=== PATIENT | female | born 1980 | race Caucasian/White ===

== ENCOUNTER → 2016-10-16 | Outpatient (REF) | payer OTHER ==
[2016-10-16 19:16] LABS: BASO % 0.3 % (0.0-1.0); EOS # 0.2 K/mm3 (0.0-0.50); EOS % 3.5 % (0.0-3.0); LARGE UNSTAINED CELL # 0.1 K/mm3 (0.0-0.4); LARGE UNSTAINED CELL % 2.4 % (0.0-4.0); LYMPH # 1.9 K/mm3 (1.5-4.5); LYMPH % 33.1 % (24.0-44.0); MEAN CORPUSCULAR HEMOGLOBIN 26.9 pg (27.0-33.0); MEAN CORPUSCULAR HGB CONC 32.5 g/dl (32.0-36.5); MEAN CORPUSCULAR VOLUME 82.8 fl (80.0-96.0); MONO # 0.2 K/mm3 (0.0-0.8); MONO % 4.1 % (0.0-5.0); NEUTROPHILS # 3.2 K/mm3 (1.8-7.7); NEUTROPHILS % 56.7 % (36.0-66.0); PLATELET COUNT, AUTOMATED 219 k/mm3 (150-450); RED CELL DISTRIBUTION WIDTH 15.6 % (11.5-14.5); WHITE BLOOD COUNT 5.7 K/mm3 (4.0-10.0)
[2016-10-16 19:27] LABS: ALBUMIN 4.1 GM/DL (3.2-5.2); ALBUMIN/GLOBULIN RATIO 1.32 (1.00-1.93); ALKALINE PHOSPHATASE 61 U/L (45-117); ALT/SGPT 59 U/L (12-78); ANION GAP 10 MEQ/L (8-16); AST/SGOT 24 U/L (15-37); BILIRUBIN,TOTAL 0.8 MG/DL (0.2-1.0); BLOOD UREA NITROGEN 13 MG/DL (7-18); CALCIUM LEVEL 9.1 MG/DL (8.5-10.1); CARBON DIOXIDE LEVEL 28 MEQ/L (21-32); CHLORIDE LEVEL 105 MEQ/L (98-107); CREATININE FOR GFR 0.61 MG/DL (0.55-1.02); FERRITIN 31 NG/ML (8-252); GLOMERULAR FILTRATION RATE > 60.0 (>60); GLUCOSE, FASTING 108 MG/DL (70-105); PERCENT SATURATION 9.8 % (13.2-37.4); PHOSPHORUS LEVEL 3.3 MG/DL (2.5-4.9); POTASSIUM SERUM 3.9 MEQ/L (3.5-5.1); SODIUM LEVEL 143 MEQ/L (136-145); TOTAL IRON BINDING CAPACITY 338 UG/DL (250-450); TOTAL PROTEIN 7.2 GM/DL (6.4-8.2)
[2016-10-16 19:31] LABS: VITAMIN B12 LEVEL 940 PG/ML (247-911)
[2016-10-20 11:04] LABS: PRETREATED FOLATE FOR RBCFOL 9.9 NG/ML
== END ==
LOC: M LABDRWAD 15:08
PROVIDERS: ATTEND Surgery
DX: K91.2 Postsurgical malabsorption, not elsewhere classified (principal); E55.9 Vitamin D deficiency, unspecified; Z98.84 Bariatric surgery status

== ENCOUNTER → 2016-11-25 | Outpatient (CLI) | payer OTHER ==
--- NOTE | 2016-11-25 10:55 | REP ---
Clinical: Sprain. Technique: AP, lateral, bilateral oblique views of the right wrist. Findings: The carpal bones are normal and there is no evidence for acute fracture or dislocation. There is chronic negative ulnar variance. Surrounding soft tissues are unremarkable. Impression: No acute fracture dislocation. Chronic negative ulnar variance. Signed by Markie Moore MD 11/25/2016 10:47 A
== END ==
LOC: M WUC 10:28
PROVIDERS: ATTEND Physician Assistant
DX: S63.511A Sprain of carpal joint of right wrist, initial encounter (principal); X58.XXXA Exposure to other specified factors, initial encounter; Y93.9 Activity, unspecified; Y92.9 Unspecified place or not applicable; Y99.8 Other external cause status

== ENCOUNTER → 2017-04-08 | Outpatient (REF) | payer OTHER ==
[2017-04-08 20:10] LABS: BASO % 0.5 % (0.0-1.0); EOS # 0.2 K/mm3 (0.0-0.50); EOS % 2.5 % (0.0-3.0); LARGE UNSTAINED CELL # 0.1 K/mm3 (0.0-0.4); LARGE UNSTAINED CELL % 1.4 % (0.0-4.0); LYMPH % 35.1 % (24.0-44.0); MEAN CORPUSCULAR HGB CONC 31.9 g/dl (32.0-36.5); MEAN CORPUSCULAR VOLUME 84.6 fl (80.0-96.0); MONO # 0.3 K/mm3 (0.0-0.8); MONO % 4.1 % (0.0-5.0); NEUTROPHILS # 4.7 K/mm3 (1.8-7.7); NEUTROPHILS % 56.4 % (36.0-66.0); PLATELET COUNT, AUTOMATED 217 k/mm3 (150-450); RED CELL DISTRIBUTION WIDTH 14.1 % (11.5-14.5); WHITE BLOOD COUNT 8.3 K/mm3 (4.0-10.0)
[2017-04-08 20:20] LABS: ALBUMIN 3.8 GM/DL (3.2-5.2); ALBUMIN/GLOBULIN RATIO 1.12 (1.00-1.93); ALKALINE PHOSPHATASE 56 U/L (45-117); ALT/SGPT 23 U/L (12-78); ANION GAP 7 MEQ/L (8-16); AST/SGOT 12 U/L (15-37); BILIRUBIN,TOTAL 0.8 MG/DL (0.2-1.0); BLOOD UREA NITROGEN 10 MG/DL (7-18); CALCIUM LEVEL 9.2 MG/DL (8.5-10.1); CARBON DIOXIDE LEVEL 28 MEQ/L (21-32); CHLORIDE LEVEL 106 MEQ/L (98-107); CREATININE FOR GFR 0.72 MG/DL (0.55-1.02); FERRITIN 10 NG/ML (8-252); GLOMERULAR FILTRATION RATE > 60.0 (>60); GLUCOSE, FASTING 93 MG/DL (70-105); MAGNESIUM LEVEL 2.1 MG/DL (1.8-2.4); PERCENT SATURATION 11.1 % (13.2-45.0); PHOSPHORUS LEVEL 3.6 MG/DL (2.5-4.9); SODIUM LEVEL 141 MEQ/L (136-145); TOTAL IRON BINDING CAPACITY 360 UG/DL (250-450); TOTAL PROTEIN 7.2 GM/DL (6.4-8.2)
[2017-04-08 20:27] LABS: VITAMIN B12 LEVEL 662 PG/ML (247-911)
== END ==
LOC: M LABDRWAD 19:21 → M LAB REF 19:21
PROVIDERS: ATTEND Surgery
DX: K91.2 Postsurgical malabsorption, not elsewhere classified (principal); E55.9 Vitamin D deficiency, unspecified; Z98.84 Bariatric surgery status

== ENCOUNTER 2017-07-14 06:42 | Emergency (ER) | payer OTHER ==
[~2017-07-14] VITALS: Ht 162.6 cm; Wt 103.6 kg
[2017-07-14] MEDS ORDERED: [UNRECOGNIZED DRUG - OTHER] PO (06:55)
--- NOTE | 2017-07-14 07:51 | REP ---
Clinical: Chest pain . Comparison: 04/22/2014 . Findings: The mediastinum and cardiac silhouette are stable and within normal limits for portable technique. The lung estrada are clear without acute consolidation, effusion, or pneumothorax. Skeletal structures are intact. Impression: No acute cardiopulmonary process appreciated. Signed by Markie Moore MD 07/14/2017 07:42 A
[2017-07-14 08:10] LABS: BASO % 0.6 % (0.0-1.0); EOS # 0.1 10^3/uL (0.0-0.50); EOS % 2.1 % (0.0-3.0); IMMATURE GRANULOCYTE % 0.1 % (0-0); LYMPH # 2.3 10^3/uL (1.5-4.5); LYMPH % 34.6 % (24.0-44.0); MEAN CORPUSCULAR HEMOGLOBIN 27.8 pg (27.0-33.0); MEAN CORPUSCULAR VOLUME 84.2 fl (80.0-96.0); MONO # 0.4 10^3/uL (0.0-0.8); MONO % 6.2 % (0.0-5.0); NEUTROPHILS # 3.8 10^3/uL (1.8-7.7); NEUTROPHILS % 56.4 % (36.0-66.0); PLATELET COUNT, AUTOMATED 203 10^3/uL (150-450); RED CELL DISTRIBUTION WIDTH 13.8 % (11.5-14.5); WHITE BLOOD COUNT 6.8 10^3/uL (4.0-10.0)
[2017-07-14 08:22] LABS: CONTROL LINE HCG INT CTR LINE PRESENT
[2017-07-14 08:37] LABS: ANION GAP 4 MEQ/L (8-16); BLOOD UREA NITROGEN 11 MG/DL (7-18); CALCIUM LEVEL 8.8 MG/DL (8.5-10.1); CARBON DIOXIDE LEVEL 30 MEQ/L (21-32); CHLORIDE LEVEL 107 MEQ/L (98-107); CREATININE FOR GFR 0.74 MG/DL (0.55-1.02); FREE T4 1.15 NG/DL (0.76-1.46); GLOMERULAR FILTRATION RATE > 60.0 (>60); GLUCOSE, FASTING 98 MG/DL (70-105); POTASSIUM SERUM 3.5 MEQ/L (3.5-5.1); SODIUM LEVEL 141 MEQ/L (136-145)
[2017-07-14 11:07] VITALS: BP 129/72
--- NOTE | 2017-07-14 14:18 | ECGEPIP ---
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
== END 2017-07-14 11:08 | disposition home or self-care (01) ==
LOC: M ED 06:42 → EDBD 06:42 → M ED 11:08
DX: R00.2 Palpitations (principal); I10 Essential (primary) hypertension; E11.9 Type 2 diabetes mellitus without complications; Z98.84 Bariatric surgery status; Z82.49 Family history of ischemic heart disease and other diseases of the circulatory system

== ENCOUNTER → 2017-10-08 | Outpatient (REF) | payer OTHER | LOC: M LAB REF 10-09 20:19 | DX: J02.9 Acute pharyngitis, unspecified (principal) ==

== ENCOUNTER 2019-12-14 22:13 | Emergency (ER) | payer OTHER ==
[~2019-12-14] VITALS: Ht 162.6 cm; Wt 113.6 kg
[~2019-12-14 22:13] MED LIST: [UNRECOGNIZED DRUG - OTHER] PO
[2019-12-14] MEDS ORDERED: ACETAMINOPHEN TAB 650MG DOSE (2X325MG) PO ONE (22:30)
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
[2019-12-14 23:55] VITALS: BP 149/70
--- NOTE | 2019-12-15 02:00 | REP ---
Clinical: Trauma. Technique: AP and lateral views of the left forearm. Findings: No acute fracture or dislocation. Skeletal structures, joint spaces, and surrounding soft tissues appear normal. No subcutaneous emphysema or foreign body. Impression: No acute fracture or dislocation. Electronically Signed by Markie Moore MD 12/15/2019 01:52 A
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
== END 2019-12-15 | disposition home or self-care (01) ==
LOC: M ED 22:13
DX: S40.012A Contusion of left shoulder, initial encounter (principal); S16.1XXA Strain of muscle, fascia and tendon at neck level, initial encounter; V43.62XA Car passenger injured in collision with other type car in traffic accident, initial encounter; Y92.9 Unspecified place or not applicable; Y93.9 Activity, unspecified; Y99.9 Unspecified external cause status; Z79.899 Other long term (current) drug therapy

== ENCOUNTER → 2020-01-29 | Outpatient (CLI) | payer OTHER ==
--- NOTE | 2020-01-30 02:35 | REP ---
Clinical: Right elbow pain. Technique: AP, lateral, bilateral oblique views of the right elbow. Findings: Subchondral sclerosis and osteophyte formation along the coronoid process extending into the medial joint space is appreciated. No acute fracture or dislocation. Lateral view cannot exclude a small joint effusion. Impression: Degenerative changes primarily involving the proximal ulna. Electronically Signed by Markie Moore MD 01/30/2020 02:26 A
== END ==
LOC: M ADAMS 08:43
PROVIDERS: ATTEND Physician Assistant
DX: M25.521 Pain in right elbow (principal); M19.021 Primary osteoarthritis, right elbow

== ENCOUNTER 2020-02-18 11:22 | Emergency (ER) | payer OTHER ==
[~2020-02-18] VITALS: Ht 162.6 cm; Wt 122.7 kg
[2020-02-18 14:06] VITALS: BP 159/83
--- NOTE | 2020-02-18 14:09 | REP ---
CT STUDY OF THE CERVICAL SPINE WITHOUT CONTRAST: HISTORY: Neck pain. Comparison CT study of the cervical spine is from December 14, 2019. TECHNIQUE: Helical scanning is acquired and overlapping 2 mm high resolution axial images were generated and reviewed at bone and soft tissue window settings. Coronal and sagittal multiplanar re-formations images are generated. CT FINDINGS: Previous suboccipital craniotomy changes are again noted. There are degenerative disc disease changes at C4-5 and C5-6 and C6-7, unchanged from the prior study. At C4-5 and C5-6, there is a diffuse disc bulging with posterior osteophytic ridging. At C4-5, this indents the thecal sac and probably mildly compresses the cord. These findings are unchanged. There is no evidence of cervical spine element fracture. No skull base fracture is seen. Cervical vertebral body heights are preserved. Alignment is normal. Facet joints are normally aligned bilaterally at each cervical level on multiplanar re-formations images. There is no evidence of intra-spinal or paraspinal hematoma. No extra vertebral abnormality is seen. IMPRESSION: Degenerative spondylosis changes, stable from December 14, 2019. There is evidence of posterior osteophytic ridging and disc bulging producing mild central canal stenosis at C4-5, unchanged. Previous suboccipital craniotomy changes. CT study of the cervical spine without contrast. No fracture seen. Electronically Signed by David Bean MD 02/18/2020 02:41 P
== END 2020-02-18 14:07 | disposition home or self-care (01) ==
LOC: M ED 11:22
DX: M54.2 Cervicalgia (principal); Z98.84 Bariatric surgery status; M47.812 Spondylosis without myelopathy or radiculopathy, cervical region; Z79.899 Other long term (current) drug therapy

== ENCOUNTER 2021-07-17 13:11 | Emergency (ER) | payer OTHER ==
[~2021-07-17] VITALS: Ht 162.6 cm; Wt 122.5 kg
--- OUTSIDE RECORDS SUMMARY | 2021-07-17 13:19 | CCD ---
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 Phone LYNNE TAFOYA Unavailable Allergies, Adverse Reactions, Alerts NSAIDS (Non-Steroida l Anti-Inflammatory Drug) 12/05/2016 Allergies Removed from Chart: No Known Drug Allergies 12/05/2016 Medications * Discontinued: * * PaxiL 20 mg tablet 07/22/2016 * labetaloL 200 mg tablet 12/05/2016 * metFORMIN 500 mg tablet 12/05/2016 * amoxicillin 500 mg tablet 07/22/2016 * Polytrim 10,000 unit-1 mg/mL eye drops 07/22/2016 * Zofran ODT 4 mg disintegrating tablet 08/20/2016 * dexAMETHasone 4 mg tablet 12/05/2016 * Natalya Natarajan * Pepcid 40 mg tablet 04/04/2018 * Bactrim DS 800 mg-160 mg tablet 04/04/2018 * Tamiflu 75 mg capsule 04/04/2018 * Zofran 4 mg tablet 04/04/2018 * LYNNE TAFOYA PA * cephALEXin 500 mg tablet 01/06/2019 * Lotrisone 1 %-0.05 % topical cream 01/06/2019 * mupirocin 2 % topical ointment 01/06/2019 * Bactrim DS 800 mg-160 mg tablet 01/06/2019 * permethrin 5 % topical cream 01/06/2019 * amoxicillin 875 mg tablet 06/29/2021 * KIMBERLY YATES LPN * Cipro 500 mg tablet 02/14/2021 * FlagyL 500 mg tablet 02/14/2021 Problems Addressed During This Encounter Headache, unspecified (R51.9) 06/29/2021 Nasal congestion (R09.81) 06/29/2021 COVID-19 (U07.1) 06/29/2021 Contact with and (suspected) exposure to other viral communicable diseases (Z20.828) 06/29/2021 Resolved: Unspecified conjunctivitis (H10.9) 04/04/2018 Acute pharyngitis, unspecified (J02.9) 04/04/2018 Nausea with vomiting, unspecified (R11.2) 04/04/2018 Unspecified abdominal pain (R10.9) 04/04/2018 Influenza due to identified novel influenza A virus with other manifestations (J09.X9) 04/04/2018 Urinary tract infection, site not specified (N39.0) 04/04/2018 Dysuria (R30.0) 04/04/2018 Cellulitis of left finger (L03.012) 05/25/2018 Rash and other nonspecific skin eruption (R21) 05/25/2018 Dysuria (R30.0) 05/25/2018 Urinary tract infection, site not specified (N39.0) 05/25/2018 Scabies (B86) 01/06/2019 Rash and other nonspecific skin eruption (R21) 01/06/2019 Urinary tract infection, site not specified (N39.0) 06/29/2021 Unspecified abdominal pain (R10.9) 06/29/2021 Left lower quadrant abdominal tenderness (R10.814) 06/29/2021 Left upper quadrant abdominal tenderness (R10.812) 06/29/2021 Anemia, unspecified (D64.9) 06/29/2021 Jaw pain (R68.84) 06/29/2021 Localized swelling, mass and lump, head (R22.0) 06/29/2021 Results Leukocytes: Negative 07/22/2016 Nitrite: Negative 07/22/2016 Urobilinogen: Negative 07/22/2016 Protein: Negative 07/22/2016 pH: 6.0 07/22/2016 Blood (Urine): Negative 07/22/2016 Specific [place]: 1.010 07/22/2016 Ketone: Negative 07/22/2016 Bilirubin: Negative 07/22/2016 Glucose: Negative 07/22/2016 Leukocytes: Trace 12/05/2016 Nitrite: Negative 12/05/2016 Urobilinogen: 1 mg/dL 12/05/2016 Protein: +1 12/05/2016 pH: 6.0 12/05/2016 Blood (Urine): Hemol +++ 12/05/2016 Specific [place]: 1.030 12/05/2016 Ketone: Large 12/05/2016 Bilirubin: Negative 12/05/2016 Glucose: Negative 12/05/2016 Leukocytes: Small 04/28/2018 Nitrite: Negative 04/28/2018 Urobilinogen: Negative 04/28/2018 Protein: Negative 04/28/2018 pH: 6.0 04/28/2018 Blood (Urine): Negative 04/28/2018 Specific [place]: 1.020 04/28/2018 Ketone: Negative 04/28/2018 Bilirubin: Negative 04/28/2018 Glucose: Negative 04/28/2018 Leukocytes: Large 01/06/2019 Nitrite: Negative 01/06/2019 Urobilinogen: Negative 01/06/2019 Protein: Negative 01/06/2019 pH: 6.5 01/06/2019 Blood (Urine): Negative 01/06/2019 Specific [place]: 1.005 01/06/2019 Ketone: Negative 01/06/2019 Bilirubin: Negative 01/06/2019 Glucose: Negative 01/06/2019 WBC: 8.7 10*3/uL 01/06/2019 RBC: 4.89 10*6/uL 01/06/2019 HGB: 10.2 g/dL 01/06/2019 HCT: 32.5 % 01/06/2019 MCV: 66.5 fL 01/06/2019 MCH: 20.9 pg 01/06/2019 MCHC: 31.4 g/dL 01/06/2019 RDW: 17.9 % 01/06/2019 PLT: 250 10*3/uL 01/06/2019 MPV: 9.5 fL 01/06/2019 NEUT %: 63.9 % 01/06/2019 LYMPH %: 27.5 % 01/06/2019 MONO %: 7.1 % 01/06/2019 EOS %: 1.1 % 01/06/2019 BASO %: 0.4 % 01/06/2019 NEUT #: 5.5 10*3/uL 01/06/2019 LYMPH #: 2.4 10*3/uL 01/06/2019 MONO #: 0.6 10*3/uL 01/06/2019 EOS #: 0.1 10*3/uL 01/06/2019 BASO #: 0 10*3/uL 01/06/2019 LIPASE: 94 U/L 01/06/2019 SODIUM: 140 mmol/L 01/06/2019 Potassium: 3.9 mmol/L 01/06/2019 CHLORIDE: 107 mmol/L 01/06/2019 CO2: 27 mmol/L 01/06/2019 ANION GAP: 6 mmol/L 01/06/2019 UREA NITROGEN: 7 mg/dL 01/06/2019 Creatinine: 0.59 mg/dL 01/06/2019 BUN/CREAT RATIO: 11.9 RATIO 01/06/2019 Glucose: 79 mg/dL 01/06/2019 CALCIUM: 8.7 mg/dL 01/06/2019 TOTAL PROTEIN: 7.8 g/dL 01/06/2019 ALBUMIN: 4 g/dL 01/06/2019 GLOBULIN: 3.8 g/dL 01/06/2019 ALB/GLOB RATIO: 1.1 RATIO 01/06/2019 ALKALINE PHOSPHATASE: 49 U/L 01/06/2019 BILIRUBIN,TOTAL: 1.6 mg/dL 01/06/2019 AST (SGOT): 10 U/L 01/06/2019 ALT (SGPT): 23 U/L 01/06/2019 GFR : >60 01/06/2019 GFR ( AMER): >60 01/06/2019 IRON,TOTAL @: 18 ug/dL 01/06/2019 UIBC @: 417 ug/dL 01/06/2019 TIBC @: 435 ug/dL 01/06/2019 % SATURATION: 4 % 01/06/2019 Chief Complaint COVID test, headache, nasal congestion We will treat for likely abscess the rig ht upper jawAmoxicillin prescribedPatient educated on additional supportive managementLocal dentist information provided RIGHT SIDE FACE SWOLLEN Abdominal painUrinary frequency but not really burning or painHistory diverticulitisHistory gastric bypassFlat and upright abdominal films unrevealingUrinalysis is notedSome leukocyte esteraseGiven her history I sent her for stat CT of the abdomen and pelvisThis confirms diverticulitisStart Cipro and FlagylFollow up with primary careConsider colonoscopyLabs have been ordered and are pending LLQ PAIN RashProbably scabiesStart permethrinObta ined scrapings scabies Patient has apparent cellulitis of the l eft fingerShe was treated recently Keflex did not get betterExposed to MRSAStart Bactrim and BactrobanAlthough not noted above a little bit of redness around the margins of the tattooWe will contact the scientific artist and see if she can use Bactroban on this areaDysuriaUrinalysis notedSend cultureWill be on Bactrim for the above finger infection, dysuria Left middle fingerInflammationDid not re spond to prednisoneCertainly looks a bit like eczema but certainly could also be a fungal infectionTry LotrisoneKeflex for secondary infection painful, itchy rash on left hand/fingers x 1 month.took 10 days of prednisone but it did not help. C/O N&V, abdominal pain, back pain begin mariaelena last night; constipation x 2 days; states she fell twice yesterday. Gastric bypass on 09/17 Pt amb to room for headache and st x thi s am. Pt states has hx of strep throat. Pt states finished antibiotic for strep on \. Pt amb to office with complaint of upper abdominal pain x 2 days. Tender to the touch. Constipation/diarrhea. Frequent urination. LYONS. Fever. Fatigue. Medicating with tylenol. C/O redness, swelling, itching, burning, thick exudate to RT eye beginning yesterday; ST x 1 week. Procedures Performed and Ordered Today * MED SERV, LUTHER/WKEND/HOLIDAY 01/26/2016 * RAPID STREP 08/20/2016 * MED SERV, LUTHER/WKEND/HOLIDAY 08/20/2016 * URINALYSIS NONAUTO W/O SCOPE 12/05/2016 * INFLUENZA ASSAY W/OPTIC 12/05/2016 * ROUTINE VENIPUNCTURE 01/06/2019 * MED SERV, LUTHER/WKEND/HOLIDAY 06/29/2021 * INFECTIOUS AGENT DETECTION COMPLETED WITHIN 2 DAYS 06/29/2021 * NFCT DS VIR RESP RNA 4 TRGT rsv and lfu negative 06/29/2021 * * Lab: Collected Date 07/22/16 15:22 07/22/2016 URINE CULTURE 07/22/2016 Collected Date 08/20/16 19:47 08/20/2016 THROAT PO CULTURE 08/20/2016 Collected Date 12/05/16 11:15 12/05/2016 URINE CULTURE 12/05/2016 Collected Date 04/28/18 1318 04/28/2018 URINE CULTURE 04/28/2018 MACROSCOPIC EXAM PARASITE 05/25/2018 Collected Date 05/25/2018 1210 05/25/2018 CMP 01/06/2019 CBCDIFF 01/06/2019 Collected Date 01/06/2019 1216 01/06/2019 URINE CULTURE 01/06/2019 LIPASE 01/06/2019 IRON PANEL 01/07/2019 Imaging: CT ABDOMEN AND PELVIS W/ CONTRAST call [phone] with stat report. Suspect diverticulitis. History of the same. History of gastric bypass. 01/06/2019 XRAY ABDOMEN 2 VIEW (FLAT and UPRIGHT) 01/06/2019 Vital signs Body Temperature: Heart Rate: Respiratory Rate: BP: Height: Weight: BMI: O2 Percentage [facility] Oximetry : Inhaled Oxygen Concentration: 98.1F 02/14/2021 63 beats per minute 02/14/2021 16 breaths per minute 05/25/2018 130/ 86 mmHg 02/14/2021 5ft, 5in 12/05/2016 259lbs 02/14/2021 47.089 12/05/2016 98% 02/14/2021 21% 02/14/2021 Immunizations Social History Smoking Status: Never smoker. 02/14/2021 Reason for Referral Functional Status Plan of Treatment Appointments [facility] ed: Tuesday, January 26, 2016 , 3:20 PM, LYNNE RAMIREZ Friday, July 22, 2016, 2:30 PM, LYNNE RAMIREZ July, 5:00 PM, LYNNE RAMIREZ Monday, December 05, 2016, 10:30 AM, VENKATA RAMIREZ Wednesday, April 04, 2018, 3:50 PM, LYNNE RAMIREZ March, 1:00 PM, LYNNE RAMIREZ Friday, May 25, 2018, 2:00 PM, LYNNE RAMIREZ Sunday, January 06, 2019, 11:20 AM, LYNNE RAMIREZ Sunday, February 14, 2021, 10:40 AM, SHELLEY BARILLAS NP Tuesday, June 29, 2021, 10:00 AM, Visits Covid Instructions: <Follow up with primary care> Return if symptoms worsen When taking antibiotics, also take probiotics. <Follow up with primary care> Return if symptoms worsen We will call with lab and/or xray results <Follow up with primary care> Return if symptoms worsen We will call with lab and/or xray results <Follow up with primary care> Consider using a barrier method for control while on antibiotics as antibiotics may inhibit the effectiveness of oral contraceptives. Return if symptoms worsen We will call with lab and/or xray results When taking antibiotics, also take probiotics. <Follow up with primary care> Return if symptoms worsen When taking antibiotics, also take probiotics. Patient was able to urinate after the bag of IV fluid was finishedThe Zofran was ordered to decrease nauseaShe did receive one 4 mg tablet of Zofran in the office setting and nausea was quietedPatient was instructed to go home and use popsicles, scant amounts of fluid continuously, ice to rehydrateShe is not improve she return tomorrowAdditionally she notes she has a urinary tract infection, hematuriaThere is antibiotic given for that purposeShe is mildly positive influenzaTamiflu and for taking the medication was instructed to the patientTreatment followup with her PCP Treat fever with ibuprofen and/or acetaminophen per label instructions as needed unless allergic or otherwise intolerant. Return if symptoms worsen We will call with lab and/or xray results Return if symptoms worsen We will call with lab and/or xray results Symptomatic treatment with OTC cold medications as needed per label instructions as long as you do not have any allergies or intolerance to these medication Treat fever with ibuprofen and or acetaminophen per label instructions as needed unless allergic or intolerant. If your symptoms worsen, go to the Emergency Room. When taking antibiotics, also take probiotics. If the left eye becomes infected also treat that side 5 days Payers Insurance Policy Type Po licy ID Relation Subscriber Expi ration ID IDENTIFICATION Other Insurance Self SUSAN GIORDANO [facility] C ommercial Insurance [id number] Self SUSAN BUENROSTRO [facility] Encounters OFFICE/OUTPATIENT SIT,EST 06/29/2021 Diagnoses Headache, unspecified Nasal congestion COVID-19 Contact with and (suspected) exposure to other viral communicable diseases OFFICE/OUTPATIENT SIT, EST 02/14/2021 Diagnoses Jaw pain Localized swelling, mass and lump, head OFFICE/OUTPATIENT SIT, EST 01/06/2019 OFFICE/OUTPATIENT SIT, EST 05/25/2018 OFFICE/OUTPATIENT SIT, EST 04/28/2018 OFFICE/OUTPATIENT SIT, EST 04/04/2018 OFFICE/OUTPATIENT SIT, EST 12/05/2016 OFFICE/OUTPATIENT SIT, EST 08/20/2016 OFFICE/OUTPATIENT SIT, EST 07/22/2016 OFFICE/OUTPATIENT SIT, EST 01/26/2016
--- OUTSIDE RECORDS SUMMARY | 2021-07-17 13:19 | CCD ---
Author Author [facility] Organization [facility] Address Unknown Phone Unavailable Care Team Providers Care Storeroom Clerk Name Role Phone Potter, M Cara PROFILING MACHINE SETUP OPERATOR Unavailable Unavailable Potter, M Cara PROFILING MACHINE SETUP OPERATOR Unavailable Unavailable Potter, M Cara PROFILING MACHINE SETUP OPERATOR Unavailable Unavailable Potter, M Cara PROFILING MACHINE SETUP OPERATOR Unavailable Unavailable Potter, M Cara PROFILING MACHINE SETUP OPERATOR Unavailable Unavailable Potter, M Cara PROFILING MACHINE SETUP OPERATOR Unavailable Unavailable Potter, M Cara PROFILING MACHINE SETUP OPERATOR Unavailable Unavailable Potter, M Cara PROFILING MACHINE SETUP OPERATOR Unavailable Unavailable Potter, M Cara PROFILING MACHINE SETUP OPERATOR Unavailable Unavailable Potter, M Cara PROFILING MACHINE SETUP OPERATOR Unavailable Unavailable Potter, M Cara PROFILING MACHINE SETUP OPERATOR Unavailable Unavailable Potter, M Cara PROFILING MACHINE SETUP OPERATOR Unavailable Unavailable Potter, M Cara PROFILING MACHINE SETUP OPERATOR Unavailable Unavailable Potter, M Cara PROFILING MACHINE SETUP OPERATOR Unavailable Unavailable Potter, M Cara PROFILING MACHINE SETUP OPERATOR Unavailable Unavailable Potter, M Cara PROFILING MACHINE SETUP OPERATOR Unavailable Unavailable Potter, M Cara PROFILING MACHINE SETUP OPERATOR Unavailable Unavailable Potter, M Cara PROFILING MACHINE SETUP OPERATOR Unavailable Unavailable Potter, M Cara PROFILING MACHINE SETUP OPERATOR Unavailable Unavailable Potter, M Cara PROFILING MACHINE SETUP OPERATOR Unavailable Unavailable Potter, M Cara PROFILING MACHINE SETUP OPERATOR Unavailable Unavailable Potter, M Cara PROFILING MACHINE SETUP OPERATOR Unavailable Unavailable Potter, M Cara PROFILING MACHINE SETUP OPERATOR Unavailable Unavailable Potter, M Cara PROFILING MACHINE SETUP OPERATOR Unavailable Unavailable Potter, M Cara PROFILING MACHINE SETUP OPERATOR Unavailable Unavailable Potter, M Cara PROFILING MACHINE SETUP OPERATOR Unavailable Unavailable Potter, M Cara PROFILING MACHINE SETUP OPERATOR Unavailable Unavailable Potter, M Cara PROFILING MACHINE SETUP OPERATOR Unavailable Unavailable Potter, M Cara PROFILING MACHINE SETUP OPERATOR Unavailable Unavailable Potter, M Cara PROFILING MACHINE SETUP OPERATOR Unavailable Unavailable Potter, M Cara PROFILING MACHINE SETUP OPERATOR Unavailable Unavailable Potter, M Cara PROFILING MACHINE SETUP OPERATOR Unavailable Unavailable Potter, M Cara PROFILING MACHINE SETUP OPERATOR Unavailable Unavailable Potter, M Cara PROFILING MACHINE SETUP OPERATOR Unavailable Unavailable Potter, M Cara PROFILING MACHINE SETUP OPERATOR Unavailable Unavailable Potter, M Cara PROFILING MACHINE SETUP OPERATOR Unavailable Unavailable Potter, M Cara PROFILING MACHINE SETUP OPERATOR Unavailable Unavailable Potter, M Cara PROFILING MACHINE SETUP OPERATOR Unavailable Unavailable Potter, M Cara PROFILING MACHINE SETUP OPERATOR Unavailable Unavailable Potter, M Cara PROFILING MACHINE SETUP OPERATOR Unavailable Unavailable Potter, M Cara PROFILING MACHINE SETUP OPERATOR Unavailable Unavailable Potter, M Cara PROFILING MACHINE SETUP OPERATOR Unavailable Unavailable Potter, M Cara PROFILING MACHINE SETUP OPERATOR Unavailable Unavailable Potter, M Cara PROFILING MACHINE SETUP OPERATOR Unavailable Unavailable Potter, M Cara PROFILING MACHINE SETUP OPERATOR Unavailable Unavailable Potter, M Cara PROFILING MACHINE SETUP OPERATOR Unavailable Unavailable Potter, M Cara PROFILING MACHINE SETUP OPERATOR Unavailable Unavailable Potter, M Cara PROFILING MACHINE SETUP OPERATOR Unavailable Unavailable Potter, M Cara PROFILING MACHINE SETUP OPERATOR Unavailable Unavailable Potter, M Cara PROFILING MACHINE SETUP OPERATOR Unavailable Unavailable Potter, M Cara PROFILING MACHINE SETUP OPERATOR Unavailable Unavailable Potter, M Cara PROFILING MACHINE SETUP OPERATOR Unavailable Unavailable Potter, M Cara PROFILING MACHINE SETUP OPERATOR Unavailable Unavailable Potter, M Cara PROFILING MACHINE SETUP OPERATOR Unavailable Unavailable Potter, M Cara PROFILING MACHINE SETUP OPERATOR Unavailable Unavailable Potter, M Cara PROFILING MACHINE SETUP OPERATOR Unavailable Unavailable Potter, M Cara PROFILING MACHINE SETUP OPERATOR Unavailable Unavailable Potter, M Cara PROFILING MACHINE SETUP OPERATOR Unavailable Unavailable Feola, T Jaylin PA Unavailable Unavailable Feola, T Jaylin PA Unavailable Unavailable Feola, T Jaylin PA Unavailable Unavailable Feola, T Jaylin PA Unavailable Unavailable Feola, T Jaylin PA Unavailable Unavailable Feola, T Jaylin PA Unavailable Unavailable Feola, T Jaylin PA Unavailable Unavailable Feola, T Jaylin PA Unavailable Unavailable Feola, T Jaylin PA Unavailable Unavailable Feola, T Jaylin PA Unavailable Unavailable Feola, T Jaylin PA Unavailable Unavailable Feola, T Jaylin PA Unavailable Unavailable Feola, T Jaylin PA Unavailable Unavailable Feola, T Jaylin PA Unavailable Unavailable Feola, T Jaylin PA Unavailable Unavailable Feola, T Jaylin PA Unavailable Unavailable Feola, T Jaylin PA Unavailable Unavailable Feola, T Jaylin PA Unavailable Unavailable Feola, T Jaylin PA Unavailable Unavailable Feola, T Jaylin PA Unavailable Unavailable Feola, T Jaylin PA Unavailable Unavailable Feola, T Jaylin PA Unavailable Unavailable Feola, T Jaylin PA Unavailable Unavailable Feola, T Jaylin PA Unavailable Unavailable Feola, T Jaylin PA Unavailable Unavailable Feola, T Jaylin PA Unavailable Unavailable Feola, T Jaylin PA Unavailable Unavailable Feola, T Jaylin PA Unavailable Unavailable Feola, T Jaylin PA Unavailable Unavailable Feola, T Jaylin PA Unavailable Unavailable Feola, T Jaylin PA Unavailable Unavailable Feola, T Jaylin PA Unavailable Unavailable Feola, T Jaylin PA Unavailable Unavailable Feola, T Jaylin PA Unavailable Unavailable Feola, T Jaylin PA Unavailable Unavailable Feola, T Jaylin PA Unavailable Unavailable Feola, T Jaylin PA Unavailable Unavailable Feola, T Jaylin PA Unavailable Unavailable Feola, T Jaylin PA Unavailable Unavailable Feola, T Jaylin PA Unavailable Unavailable Feola, T Jaylin PA Unavailable Unavailable Ton Barone MD Unavailable Unavailable Ton Barone MD Unavailable Unavailable Ton Barone MD Unavailable Unavailable Ton Barone MD Unavailable Unavailable Ton Barone MD Unavailable Unavailable Ton Barone MD Unavailable Unavailable Ton Barone MD Unavailable Unavailable Ton Barone MD Unavailable Unavailable Ton Barone MD Unavailable Unavailable Ton Barone MD Unavailable Unavailable Ton Barone MD Unavailable Unavailable Ton Barone MD Unavailable Unavailable Ton Barone MD Unavailable Unavailable Ton Barone MD Unavailable Unavailable Ton Barone MD Unavailable Unavailable Ton Barone MD Unavailable Unavailable Ton Barone MD Unavailable Unavailable Ton Barone MD Unavailable Unavailable Ton Barone MD Unavailable Unavailable Ton Barone MD Unavailable Unavailable Ton Barone MD Unavailable Unavailable Ton Barone MD Unavailable Unavailable Ton Barone MD Unavailable Unavailable Ton Barone MD Unavailable Unavailable Ton Barone MD Unavailable Unavailable TAFOYA, W LYNNE PA Unavailable Unavailable TAFOYA, W LYNNE PA Unavailable Unavailable TAFOYA, W LYNNE PA Unavailable Unavailable TAFOYA, W LYNNE PA Unavailable Unavailable TAFOYA, W LYNNE PA Unavailable Unavailable TAFOYA, W LYNNE PA Unavailable Unavailable TAFOYA, W LYNNE PA Unavailable Unavailable TAFOYA, W LYNNE PA Unavailable Unavailable TAFOYA, W LYNNE PA Unavailable Unavailable TAFOYA, W LYNNE PA Unavailable Unavailable TAFOYA, W LYNNE PA Unavailable Unavailable TAFOYA, W LYNNE PA Unavailable Unavailable TAFOYA, W LYNNE PA Unavailable Unavailable TAFOYA, W LYNNE PA Unavailable Unavailable TAFOYA, W LYNNE PA Unavailable Unavailable TAFOYA, W LYNNE PA Unavailable Unavailable TAFOYA, W LYNNE PA Unavailable Unavailable TAFOYA, W LYNNE PA Unavailable Unavailable TAFOYA, W LYNNE PA Unavailable Unavailable TAFOYA, W LYNNE PA Unavailable Unavailable TAFOYA, W LYNNE PA Unavailable Unavailable TAFOYA, W LYNNE PA Unavailable Unavailable TAFOYA, W LYNNE PA Unavailable Unavailable TAFOYA, W LYNNE PA Unavailable Unavailable TAFOYA, W LYNNE PA Unavailable Unavailable TAFOYA, W LYNNE PA Unavailable Unavailable TAFOYA, W LYNNE PA Unavailable Unavailable TAFOYA, W LYNNE PA Unavailable Unavailable TAFOYA, W LYNNE PA Unavailable Unavailable TAFOYA, W LYNNE PA Unavailable Unavailable TAFOYA, W LYNNE PA Unavailable Unavailable TAFOYA, W LYNNE PA Unavailable Unavailable TAFOYA, W LYNNE PA Unavailable Unavailable TAFOYA, W LYNNE PA Unavailable Unavailable TAFOYA, W LYNNE PA Unavailable Unavailable TAFOYA, W LYNNE PA Unavailable Unavailable TAFOYA, W LYNNE PA Unavailable Unavailable TAFOYA, W LYNNE PA Unavailable Unavailable TAFOYA, W LYNNE PA Unavailable Unavailable TAFOYA, W LYNNE PA Unavailable Unavailable TAFOYA, W LYNNE PA Unavailable Unavailable TAFOYA, W LYNNE PA Unavailable Unavailable TAFOYA, W LYNNE PA Unavailable Unavailable TAFOYA, W LYNNE PA Unavailable Unavailable Re-disclosure Warning The records that you are about to access may contain information from federally-assisted alcohol or drug abuse programs. If such information is present, then the following federally mandated warning applies: This information has been disclosed to you from records protected by federal confidentiality rules (42 CFR part 2). The federal rules prohibit you from making any further disclosure of this information unless further disclosure is expressly permitted by the written consent of the person to whom it pertains or as otherwise permitted by 42 CFR part 2. A general authorization for the release of medical or other information is NOT sufficient for this purpose. The Federal rules restrict any use of the information to criminally investigate or prosecute any alcohol or drug abuse patient.The records that you are about to access may contain highly sensitive health information, the redisclosure of which is protected by Article 27-F of the [facility] Public Health law. If you continue you may have access to information: Regarding HIV / AIDS; Provided by facilities licensed or operated by the [facility] Office of Mental Health; or Provided by the [facility] Office for People With Developmental Disabilities. If such information is present, then the following [facility] mandated warning applies: This information has been disclosed to you from confidential records which are protected by state law. State law prohibits you from making any further disclosure of this information without the specific written consent of the person to whom it pertains, or as otherwise permitted by law. Any unauthorized further disclosure in violation of state law may result in a fine or snf sentence or both. A general authorization for the release of medical or other information is NOT sufficient authorization for further disc losure. Family History Family Member Name Family Member Gender Family Member Status Date o f Status Description Data Source(s) Unknown Unknown Problem [facility] ([facility]) Encounters Encounter Providers Location Date Indications Data Source(s ) OFFICE/OUTPATIENT VISIT,EST 06/29/2021Outpatient Attender: LYNNE RAMIREZ 06/29/2021 10:42:00 AM EDT [facility] ([facility]) Outpatient Attender: Emeli Barone MD 1 09:57:12 AM EDT - 06/09/2021 12:05:07 PM EDT [facility] Outpatient Attender: Jaylin RAMIREZ 021 07:38:19 PM EDT - 04/08/2021 08:42:34 PM EDT [facility] ([facility] ) OutpatientOFFICE/OUTPATIENT VISIT, EST 02/14/2021 Attender: Isabel Desouza NP 02/14/2021 10:36:54 AM EDT [facility] ([facility]) Medications Medication Brand Name Start Date Product Form Dose Route Admi nistrative Instructions Pharmacy Instructions Status Indications Reaction Description Data Source(s) 500 mg 06/09/2021 12:00:00 AM EDT tablet 40 TAKE ONE TABLET BY MOUTH FOUR TIMES A DAY FOR 10 DAYS TAKE ONE TABLET BY MOUTH FOUR TIMES A DAY FOR 10 DAYS SOLD: 06/09/2021 [facility] Clindamycin 300 MG Oral Capsule CLINDAMYCIN HCL 04/08/2021 12:00 :00 AM EDT capsule 30 TAKE ONE CAPSULE BY MOUTH THREE TIMES A DAY FOR 10 DAYS TAKE ONE CAPSULE BY MOUTH THREE TIMES A DAY FOR 10 DAYS SOLD: 04/08/2021 [facility] Amoxicillin 875 MG Oral Tablet amoxicillin 875 mg tabl et amoxicillin 875 mg tablet 02/14/2021 12:00:00 AM EDT 1 completed 06/29/2021 [facility] ([facility]) 875 mg 02/14/2021 12:00:00 AM EDT tablet 14 TAKE ONE TABLET BY MOUTH EVERY 12 HOURS TAKE ONE TABLET BY MOUTH EVERY 12 HOURS SOLD: 02/14/2021 [facility] Ciprofloxacin 500 MG Oral Tablet [Cipro] Cipro 500 mg tablet Cipro 500 mg tablet 01/06/2019 12:00:00 AM EDT 1 completed 02/14/2021 [facility] ([facility]) Metronidazole 500 MG Oral Tablet [Flagyl] FlagyL 500 m g tablet FlagyL 500 mg tablet 01/06/2019 12:00:00 AM EDT 1 completed 02/14/2021 [facility] ([facility]) Insurance Providers Payer name Policy type / Coverage type Policy ID Covered libertarian ID Covered libertarian's relationship to jaquez Policy Jaquez Plan Information [id number] [facility] MEDICAID [id number] Shaista [id number] [facility] I [id number] Self [id number] [facility] I [id number] [facility] I [id number] Self [id number] [facility] COMMUNITY PLAN [id number] SP [id number] SELF PAY [facility] COMMUNITY PLAN [id number] SP [id number] SELF PAY [facility] Commercial Insurance Co. [id number] Self [id number] [facility] Commercial Insurance Co. [id number] Self [id number] [facility] COMMUNITY PLAN [id number] Comme rcial Insurance [id number] [facility] Health Maintenance Organization (HMO) [id number] Self [id number] [facility] COMMUNITY PLAN [facility] CARE COMMUNITY PLAN [id number] Commercial Insurance [facility] COMMUNITY PLAN [facility] Health Maintenance Organization (HMO) [id number] [facility] COMM PLAN P W [id number] S [id number] [employer] [place] PPO [id number] [facility] [id number] Comme rcial Insurance [id number] [facility] [id number] Comme rcial Insurance [id number] ID IDENTIFICATION [id number] Other Insurance [id number] [facility] O [id number] S [id number] [facility] [id number] [facility] [id number] [facility] O [id number] C [id number] [facility] [id number] [facility] [id number] [facility] [id number] SP [id number] [facility] Health Maintenance Organization [place] [id number] Self [id number] [facility] Health Maintenance Organization [place] [id number] Self [id number] [facility] [id number] SP [id number] Problems, Conditions, and Diagnoses Code Display Name Description Problem Type Effective Dates Data Source(s) Z20.828 Contact with and (suspected) exposure to other viral communicable diseases Contact with and (suspected) exposure to other viral communicable diseases (Z20.828) 06/29/2021 [id number] 06/29/2021 10:42:00 AM EDT 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[facility]) U07.1 COVID-19 COVID-19 (U07.1) 06/29/2021 [id number] 06/29/20 10:42:00 AM EDT [facility] ([facility]) R09.81 Nasal congestion Nasal congestion (R09.81) 06/29/2021 [id number] 06/29/2021 10:42:00 AM EDT [facility] ([facility]) R51.9 Headache, unspecified Headache, unspecified (R51.9) [id number] 06/29/2021 10:42:00 AM EDT [facility] ([facility]) R22.0 Localized swelling, mass and lump, head Localized swelling, mass and lump, head (R22.0) 06/29/2021 [id number] 02/14/2021 10:36:54 AM EDT - 06/29/2021 12:00:00 AM EDT [facility] ([facility]) R68.84 Jaw pain Jaw pain (R68.84) 06/29/2021 [id number] 02/14/2021 10:36:54 AM EDT - 06/29/2021 12:00:00 AM EDT [facility] ([facility]) D64.9 Anemia, unspecified Anemia, unspecified (D64.9) 2020 [id number] 01/07/2019 09:55:09 AM EDT - 06/29/2021 12:00:00 AM EDT [facility] ([facility]) R10.812 Left upper quadrant abdominal tenderness Left upper quadrant abdominal tenderness (R10.812) 06/29/2021 [id number] 01/06/2019 11:21:07 AM EDT - 06/29/2021 12:00:00 AM EDT [facility] ([facility]) R10.814 Left lower quadrant abdominal tenderness Left lower quadrant abdominal tenderness (R10.814) 06/29/2021 [id number] 01/06/2019 11:21:07 AM EDT - 06/29/2021 12:00:00 AM EDT [facility] ([facility]) R10.9 Unspecified abdominal pain Unspecified abdominal pain (R10.9) 06/29/2021 [id number] 01/06/2019 11:21:07 AM EDT - 06/29/2021 12:00:00 AM ED T [facility] ([facility]) N39.0 Urinary tract infection, site not specif ied Urinary tract infection, site not specified (N39.0) 06/29/2021 [id number] 01/06/2019 11:21:07 A M EDT - 06/29/2021 12:00:00 AM EDT [facility] ([facility]) Surgeries/Procedures Procedure Description Date Indications Data Source(s) NFCT DS VIR RESP RNA 4 TRGT rsv and lfu negative 06/29/2021 12:00:00 AM EDT [facility] ([facility]) INFECTIOUS AGENT DETECTION COMPLETED WITHIN 2 DAYS 06/29/2021 12:00:00 AM EDT [facility] ([facility]) SVC PRV OFFICE REG SCHEDD EVN WKEND/HOLIDAY HRS 2020 12:00:00 AM EDT [facility] ([facility]) Results ID Date Data Source [id number] 06/29/2021 12:00:00 AM EDT [facility] Name Value Range Interpretation Code Description Data Delphine rce(s) Supporting Document(s) pcr positive [facility] This lab was ordered by [facility] and reported by [facility]. ID Date Data Source [id number] 09/14/2020 12:00:00 AM EST [facility] Name Value Range Interpretation Code Description Data Delphine rce(s) Supporting Document(s) SARS coronavirus 2 RNA [Presence] in Res piratory specimen by KAREN with probe detection NEGATIVE [facility] This lab was ordered by [facility] and reported by [facility]. ID Date Data Source [id number] 09/14/2020 12:00:00 AM EST [facility] Name Value Range Interpretation Code Description Data Delphine rce(s) Supporting Document(s) Carestart Rapid COVID Antigen Test Negative [facility] This lab was reported by [facility]. Procedure Social History Code Duration Value Status Description Data Source(s ) Smoking 02/14/2021 12:00:00 AM EDT Never smoker completed Never s moker [facility] ([facility]) Vital Signs ID Date Data Source UNK Name Value Range Interpretation Code Description Data Source(s) Body temperature 98.1 [degF] 98.1 [degF] RANDALL GUZMÁN ([facility]) Heart rate 63 /min 63 /min [facility] ([facility]) Systolic blood pressure 130 mm[Hg] 130 mm[Hg] C VIOLETA ([facility]) Diastolic blood pressure 86 mm[Hg] 86 mm[Hg] [facility] ([facility]) Body weight 259 [lb_av] 259 [lb_av] [facility] ([facility]) Oxygen saturation in Arterial blood by Pulse oximetry 98 % 98 % [facility] ([facility]) Inhaled oxygen concentration 21 % 21 % [facility] ([facility])
[2021-07-17] MEDS ORDERED: NS 1,000 ML IV ONE (21:45)
[2021-07-17] MEDS ORDERED: KETOROLAC 30 MG/ML 1ML VIAL IV ONE (21:45)
[2021-07-17 22:08] VITALS: BP 133/74
[2021-07-17 22:10] LABS: BASO % 0.6 % (0.0-1.0); EOS # 0.1 10^3/uL (0.0-0.5); HEMOGLOBIN 9.5 g/dl (12.0-15.5); LYMPH # 2.7 10^3/uL (1.5-5.0); LYMPH % 38.3 % (24.0-44.0); MEAN CORPUSCULAR HEMOGLOBIN 20.1 pg (27.0-33.0); MEAN CORPUSCULAR HGB CONC 27.9 g/dl (32.0-36.5); MONO # 0.5 10^3/uL (0.0-0.8); MONO % 6.7 % (2.0-8.0); NEUTROPHILS # 3.8 10^3/uL (1.5-8.5); NEUTROPHILS % 53.3 % (36.0-66.0); PLATELET COUNT, AUTOMATED 342 10^3/uL (150-450); RED BLOOD COUNT 4.72 10^6/uL (4.00-5.40); WHITE BLOOD COUNT 7.2 10^3/uL (4.0-10.0)
--- OUTSIDE RECORDS SUMMARY | 2021-07-17 22:10 | CCD ---
Author Author [facility] Organization [facility] Address Unknown Phone Unavailable Care Team Providers Care Qa Engineer Name Role Phone Potter, M Cara PROPERTY TECHNICIAN Unavailable Unavailable Potter, M Cara PROPERTY TECHNICIAN Unavailable Unavailable Potter, M Cara PROPERTY TECHNICIAN Unavailable Unavailable Potter, M Cara PROPERTY TECHNICIAN Unavailable Unavailable Potter, M Cara PROPERTY TECHNICIAN Unavailable Unavailable Potter, M Cara PROPERTY TECHNICIAN Unavailable Unavailable Potter, M Cara PROPERTY TECHNICIAN Unavailable Unavailable Potter, M Cara PROPERTY TECHNICIAN Unavailable Unavailable Potter, M Cara PROPERTY TECHNICIAN Unavailable Unavailable Potter, M Cara PROPERTY TECHNICIAN Unavailable Unavailable Potter, M Cara PROPERTY TECHNICIAN Unavailable Unavailable Potter, M Cara PROPERTY TECHNICIAN Unavailable Unavailable Potter, M Cara PROPERTY TECHNICIAN Unavailable Unavailable Potter, M Cara PROPERTY TECHNICIAN Unavailable Unavailable Potter, M Cara PROPERTY TECHNICIAN Unavailable Unavailable Potter, M Cara PROPERTY TECHNICIAN Unavailable Unavailable Potter, M Craa PROPERTY TECHNICIAN Unavailable Unavailable Potter, M Cara PROPERTY TECHNICIAN Unavailable Unavailable Potter, M Cara PROPERTY TECHNICIAN Unavailable Unavailable Potter, M Cara PROPERTY TECHNICIAN Unavailable Unavailable Potter, M Cara PROPERTY TECHNICIAN Unavailable Unavailable Potter, M Cara PROPERTY TECHNICIAN Unavailable Unavailable Potter, M Cara PROPERTY TECHNICIAN Unavailable Unavailable Potter, M Cara PROPERTY TECHNICIAN Unavailable Unavailable Potter, M Cara PROPERTY TECHNICIAN Unavailable Unavailable Potter, M Cara PROPERTY TECHNICIAN Unavailable Unavailable Potter, M Cara PROPERTY TECHNICIAN Unavailable Unavailable Potter, M Cara PROPERTY TECHNICIAN Unavailable Unavailable Potter, M Cara PROPERTY TECHNICIAN Unavailable Unavailable Potter, M Cara PROPERTY TECHNICIAN Unavailable Unavailable Potter, M Cara PROPERTY TECHNICIAN Unavailable Unavailable Potter, M Cara PROPERTY TECHNICIAN Unavailable Unavailable Potter, M Cara PROPERTY TECHNICIAN Unavailable Unavailable Potter, M Cara PROPERTY TECHNICIAN Unavailable Unavailable Potter, M Cara PROPERTY TECHNICIAN Unavailable Unavailable Potter, M Cara PROPERTY TECHNICIAN Unavailable Unavailable Potter, M Cara PROPERTY TECHNICIAN Unavailable Unavailable Potter, M Cara PROPERTY TECHNICIAN Unavailable Unavailable Potter, M Cara PROPERTY TECHNICIAN Unavailable Unavailable Potter, M Cara PROPERTY TECHNICIAN Unavailable Unavailable Potter, M Cara PROPERTY TECHNICIAN Unavailable Unavailable Potter, M Cara PROPERTY TECHNICIAN Unavailable Unavailable Potter, M Cara PROPERTY TECHNICIAN Unavailable Unavailable Potter, M Cara PROPERTY TECHNICIAN Unavailable Unavailable Potter, M Cara PROPERTY TECHNICIAN Unavailable Unavailable Potter, M Cara PROPERTY TECHNICIAN Unavailable Unavailable Potter, M Cara PROPERTY TECHNICIAN Unavailable Unavailable Potter, M Cara PROPERTY TECHNICIAN Unavailable Unavailable Potter, M Cara PROPERTY TECHNICIAN Unavailable Unavailable Potter, M Cara PROPERTY TECHNICIAN Unavailable Unavailable Potter, M Cara PROPERTY TECHNICIAN Unavailable Unavailable Potter, M Cara PROPERTY TECHNICIAN Unavailable Unavailable Potter, M Cara PROPERTY TECHNICIAN Unavailable Unavailable Potter, M Cara PROPERTY TECHNICIAN Unavailable Unavailable Potter, M Cara PROPERTY TECHNICIAN Unavailable Unavailable Potter, M Cara PROPERTY TECHNICIAN Unavailable Unavailable Potter, M Cara PROPERTY TECHNICIAN Unavailable Unavailable Potter, M Cara PROPERTY TECHNICIAN Unavailable Unavailable Feola, T Jaylin PA Unavailable [...] Unavailable Feola, T Jaylin PA Unavailable Unavailable PorterLina Dipti PA-C Unavailable Unavailable PorterLina Dipti PA-C Unavailable Unavailable PorterLina Dipti PA-C Unavailable Unavailable PorterLina Dipti PA-C Unavailable Unavailable PorterLnia Dipti PA-C Unavailable Unavailable PorterLina Dipti PA-C Unavailable Unavailable PorterLina Dipti PA-C Unavailable Unavailable PorterLina Dipti PA-C Unavailable Unavailable PorterLina Dipti PA-C Unavailable Unavailable PorterLina Dipti PA-C Unavailable Unavailable PorterLina Dipti PA-C Unavailable Unavailable PorterLina Dipti PA-C Unavailable Unavailable PorterLina Dipti PA-C Unavailable Unavailable PorterLina Dipti PA-C Unavailable Unavailable PorterLina Dipti PA-C Unavailable Unavailable PorterLina Dipti PA-C Unavailable Unavailable PorterLina Dipti PA-C Unavailable Unavailable PorterLina Dipti PA-C Unavailable Unavailable PorterLina Dipti PA-C Unavailable Unavailable PorterLina Dipti PA-C Unavailable Unavailable PorterLina Dipti PA-C Unavailable Unavailable PorterLina Dipti PA-C Unavailable Unavailable PorterLina Dipti PA-C Unavailable Unavailable PorterLina Dipti PA-C Unavailable Unavailable PorterLina Dipti PA-C Unavailable Unavailable Ton Barone MD Unavailable Unavailable [...] W LYNNE PA Unavailable Unavailable TAFOYA, W LNYNE PA Unavailable Unavailable TAFOYA, W LYNNE PA [...] is protected by Article 27-F of the [facility] Public Health law. If you continue you may have access to information: Regarding HIV / AIDS; Provided by facilities licensed or operated by the [facility] Office of Mental Health; or Provided by the [facility] Office for People With Developmental Disabilities. If such information is present, then the following [facility] mandated warning applies: This information has [...] law may result in a fine or nursing home sentence or both. A general authorization for the release of medical or other information is NOT sufficient authorization for further disc losure. Family History Family Member Name Family Member Gender Family Member Status Date o f Status Description Data Source(s) Unknown Unknown Problem [facility] ([facility]) Encounters Encounter Providers Location Date Indications Data Source(s ) Outpatient Attender: Dipti Porter PA-C 06/30 11:29:11 AM [place] - 07/17/2021 12:50:44 PM EST [facility] ([facility] ) OFFICE/OUTPATIENT VISIT,EST 06/29/2021Outpatient Attender: LYNNE RAMIREZ 06/29/2021 10:42:00 AM EDT CH[facility] ([facility]) Outpatient Attender: Emeli Barone MD 1 09:57:12 AM EDT - 06/09/2021 12:05:07 PM EDT [facility] ([facility]) Outpatient Attender: Jaylin RAMIREZ 021 07:38:19 PM EDT - 04/08/2021 08:42:34 PM EDT [facility] ([facility] ) OutpatientOFFICE/OUTPATIENT VISIT, EST 02/14/2021 Attender: Isabel Desouza NP 02/14/2021 10:36:54 AM EDT [facility] ([facility]) Medications Medication Brand Name Start [...] 02/14/2021 12:00:00 AM EDT 1 completed 06/29/2021 [facility] ([facility]) 875 mg 02/14/2021 12:00:00 AM EDT tablet 14 TAKE ONE TABLET BY MOUTH EVERY 12 HOURS TAKE ONE TABLET BY MOUTH EVERY 12 HOURS SOLD: 02/14/2021 [facility] Ciprofloxacin 500 MG Oral Tablet [Cipro] Cipro 500 mg tablet Cipro 500 mg tablet 01/06/2019 12:00:00 AM EDT 1 completed 02/14/2021 [facility]EM[facility]AN[facility]AR ([facility]) Metronidazole 500 MG Oral Tablet [Flagyl] FlagyL 500 m g tablet FlagyL 500 mg tablet 01/06/2019 12:00:00 AM EDT 1 completed 02/14/2021 [facility] ([facility]) Insurance Providers Payer name Policy type / Coverage type Policy ID Covered democrat ID Covered democrat's relationship to jaquez Policy Jaquez Plan Information [id number] [facility] MEDICAID [id number] Shaista [id number] [facility] I [id number] Self [id number] [facility] I [id number] [facility] I [id number] Self [id number] [facility] COMMUNITY PLAN [id number] SP [id number] SELF PAY [facility] COMMUNITY PLAN [id number] SP [id number] SELF PAY [facility] Commercial [employer] Co. [id number] Self [id number] [facility] Commercial Insurance Co. [id number] Self [id number] [facility] COMMUNITY PLAN [id number] Comme rcial Insurance [id number] [facility] Health Maintenance Organization (HMO) [id number] Self [id number] [facility] COMMUNITY PLAN [facility] COMMUNITY PLAN [id number] Commercial Insurance [facility] COMMUNITY PLAN [facility] Health Maintenance Organization (HMO) [id number] Self [facility] COMM PLAN FHP W [id number] S [id number] [employer] [place] PPO [id number] [facility] COMMUNITY PLAN [id number] Comme rcial Insurance [id number] [facility] COMMUNITY PLAN [id number] Comme rcial Insurance [id number] ID IDENTIFICATION [id number] Other Insurance [id number] [facility] O [id number] S [id number] [facility] [id number] [facility] [id number] [facility] [id number] [facility] [phone] [facility] [phone] [facility] [id number] SP [id number] [facility] Maintenance [facility] ([facility]) [id number] Self [id number] [facility] ([facility]) [id number] Self [id number] [facility] [id number] SP [id number] Problems, Conditions, and Diagnoses Code Display Name Description Problem Type Effective Dates Data Source(s) Z20.828 Contact with and (suspected) exposure to other viral communicable diseases Contact with and (suspected) exposure to other viral communicable diseases (Z20.828) 06/29/2021 [id number] 06/29/2021 10:42:00 AM EDT 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[facility]) U07.1 COVID-19 COVID-19 (U07.1) 06/29/2021 [id number] 06/29/20 21 10:42:00 AM EDT [facility] ([facility]) R09.81 Nasal congestion Nasal congestion (R09.81) 06/29/2021 [id number] 06/29/2021 10:42:00 AM EDT [facility] ([facility]) R51.9 Headache, unspecified Headache, unspecified (R51.9) [id number] 06/29/2021 10:42:00 AM EDT [facility] ([facility]) R22.0 Localized swelling, mass and lump, head Localized swelling, mass and lump, head (R22.0) 06/29/2021 [id number] 02/14/2021 10:36:54 AM EDT - 06/29/2021 12:00:00 AM EDT [facility] ([facility]) R68.84 Jaw pain Jaw pain (R68.84) 06/29/2021 [id number] 02/14/2021 10:36:54 AM EDT - 06/29/2021 12:00:00 AM EDT [facility] ([facility]) D64.9 Anemia, unspecified Anemia, unspecified (D64.9) 2020 [id number] 01/07/2019 09:55:09 AM EDT - 06/29/2021 12:00:00 AM EDT [facility] ([facility]) R10.812 Left upper quadrant abdominal tenderness Left upper quadrant abdominal tenderness (R10.812) 06/29/2021 [id number] 01/06/2019 11:21:07 AM EDT - 06/29/2021 12:00:00 AM EDT [facility] ([facility]) R10.814 Left lower quadrant abdominal tenderness Left lower quadrant abdominal tenderness (R10.814) 06/29/2021 [id number] 01/06/2019 11:21:07 AM EDT - 06/29/2021 12:00:00 AM EDT [facility] ([facility]) R10.9 Unspecified abdominal pain Unspecified abdominal pain (R10.9) 06/29/2021 [id number] 01/06/2019 11:21:07 AM EDT - 06/29/2021 12:00:00 AM ED T [facility] ([facility]) N39.0 Urinary tract infection, site not specif ied Urinary tract infection, site not specified (N39.0) 06/29/2021 [id number] 01/06/2019 11:21:07 A M EDT - 06/29/2021 12:00:00 AM EDT [facility] ([facility]) Surgeries/Procedures Procedure Description Date Indications Data Source(s) NFCT DS VIR RESP RNA 4 TRGT rsv and lfu negative 06/29/2021 12:00:00 AM EDT [facility] ([facility]) INFECTIOUS AGENT DETECTION COMPLETED WITHIN 2 DAYS 06/29/2021 12:00:00 AM EDT [facility] ([facility]) SVC PRV OFFICE REG SCHEDD EVN WKEND/HOLIDAY HRS 2020 12:00:00 AM EDT [facility] ([facility]) Results ID Date Data Source [id number] 06/29/2021 12:00:00 AM EDT [facility] Name Value Range Interpretation Code Description Data Delphine rce(s) Supporting Document(s) pcr positive [facility] This lab was ordered by Mayra ramos and reported by [facility]. ID Date Data Source [id number] 09/14/2020 12:00:00 AM EST [facility] Name Value Range Interpretation Code Description Data Delphine rce(s) Supporting Document(s) SARS coronavirus 2 RNA [Presence] in Res piratory specimen by KAREN with probe detection NEGATIVE [facility] This lab was ordered by Oliver Lou and reported by [facility]. ID Date Data Source [id number] 09/14/2020 12:00:00 AM EST [facility] Name Value Range Interpretation Code Description Data Delphine rce(s) Supporting Document(s) Carestart Rapid COVID Antigen Test Negative [facility] This lab was reported by Oliver wilkins. Procedure Social History Code Duration Value Status Description Data Source(s ) Smoking 02/14/2021 12:00:00 AM EDT Never smoker completed Never s eladio CH[facility] ([facility]) Vital Signs ID Date Data Source UNK Name Value Range Interpretation Code Description Data Source(s) Body temperature 98.1 [degF] 98.1 [degF] RANDALL GUZMÁN ([facility]) Heart rate 63 /min 63 /min [facility] ([facility]) Systolic blood pressure 130 mm[Hg] 130 mm[Hg] C HARTJOSEKER ([facility]) Diastolic blood pressure 86 mm[Hg] 86 mm[Hg] CH[facility]MAKER ([facility]) Body weight 259 [lb_av] 259 [lb_av] [facility] ([facility]) Oxygen saturation in Arterial blood by Pulse oximetry 98 % 98 % [facility] ([facility]) Inhaled oxygen concentration 21 % 21 % [facility] ([facility])
[2021-07-17 22:31] LABS: HCG, SERUM QUALITATIVE NEGATIVE (NEGATIVE)
[2021-07-17 22:51] LABS: ALBUMIN 3.7 GM/DL (3.2-5.2); ALT/SGPT 25 U/L (12-78); BILIRUBIN,DIRECT 0.2 MG/DL (0.0-0.2); BILIRUBIN,TOTAL 0.9 MG/DL (0.2-1.0); BLOOD UREA NITROGEN 7 MG/DL (7-18); CALCIUM LEVEL 8.9 MG/DL (8.5-10.1); CARBON DIOXIDE LEVEL 31 MEQ/L (21-32); CHLORIDE LEVEL 104 MEQ/L (98-107); CREATININE FOR GFR 0.62 MG/DL (0.55-1.30); GLOMERULAR FILTRATION RATE > 60.0 (>58); GLUCOSE, FASTING 102 MG/DL (70-100); LIPASE 133 U/L (73-393); POTASSIUM SERUM 3.8 MEQ/L (3.5-5.1); SODIUM LEVEL 143 MEQ/L (136-145); TOTAL PROTEIN 7.8 GM/DL (6.4-8.2)
[2021-07-17] MEDS ORDERED: ISOVUE-370 76% 100ML VIAL As Ordered ONE (22:52)
--- NOTE | 2021-07-18 00:15 | REPVR ---
PROCEDURE INFORMATION: Exam: CT Abdomen And Pelvis With Contrast Exam date and time: 07/17/2021 10:59 PM Age: 41 years old Clinical indication: Abdominal pain; Localized; Left lower quadrant (llq); Additional info: Llq pain TECHNIQUE: Imaging protocol: Computed tomography of the abdomen and pelvis with contrast. Radiation optimization: All CT scans at this facility use at least one of these dose optimization techniques: automated exposure control; mA and/or kV adjustment per patient size (includes targeted exams where dose is matched to clinical indication); or iterative reconstruction. Contrast material: ISOVUE 370; Contrast volume: 100 ml; Contrast route: INTRAVENOUS (IV); COMPARISON: No relevant prior studies available. FINDINGS: Liver: Normal. No mass. Gallbladder and bile ducts: Cholecystectomy clips in the right upper quadrant. There is a mild, expected degree of intrahepatic and common bile duct dilation. Pancreas: Normal. No ductal dilation. Spleen: Normal. No splenomegaly. Adrenal glands: Normal. No mass. Kidneys and ureters: Normal. No hydronephrosis. 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 Multiple colonic diverticula, there is some minimal stranding adjacent to the descending colon, suggesting minimal/mild diverticulitis. Appendix: No evidence of appendicitis. Intraperitoneal space: Unremarkable. No free air. No significant fluid collection. Vasculature: Unremarkable. No abdominal aortic aneurysm. Lymph nodes: Unremarkable. No enlarged lymph nodes. Urinary bladder: Unremarkable as visualized. Reproductive: Unremarkable as visualized. Bones/joints: Unremarkable. No acute fracture. Soft tissues: Unremarkable. IMPRESSION: Multiple colonic diverticula, there is some minimal stranding adjacent to the descending colon, suggesting minimal/mild diverticulitis. Electronically signed by: Karl Barnard On 07/18/2021 00:15:07 AM
[2021-07-18] MEDS ORDERED: metroNIDAZOLE (FLAGYL) 500MG TABLET PO ONE (00:20)
[2021-07-18] MEDS ORDERED: CIPROFLOXACIN 500MG TABLET PO ONE (00:20)
[2021-07-18] MEDS ORDERED: CIPR-249 PO (00:24)
[2021-07-18] MEDS ORDERED: METR-265 PO (00:24)
== END 2021-07-18 00:38 | disposition home or self-care (01) ==
LOC: M ED 13:11
DX: K57.32 Diverticulitis of large intestine without perforation or abscess without bleeding (principal); N93.8 Other specified abnormal uterine and vaginal bleeding; D64.9 Anemia, unspecified; E66.9 Obesity, unspecified; E11.9 Type 2 diabetes mellitus without complications; R51.9 Headache, unspecified; J45.909 Unspecified asthma, uncomplicated; Z98.84 Bariatric surgery status; Z79.899 Other long term (current) drug therapy
CPT/HCPCS: 74177; 80048; 80076; 81001; 83690; 84703; 85025; 96361; 96374; 99284; J1885; Q9967

== ENCOUNTER → 2022-09-04 | Outpatient (CLI) | payer OTHER ==
[~2022-09-04] MED LIST changes: +CIPR-249 PO; +METR-265 PO
[2022-09-04 14:12] LABS: HEMATOCRIT 40.9 % (36.0-47.0); MEAN CORPUSCULAR HEMOGLOBIN 23.4 pg (27.0-33.0); MEAN CORPUSCULAR HGB CONC 29.3 g/dl (32.0-36.5); MEAN CORPUSCULAR VOLUME 79.9 fl (80.0-96.0); PLATELET COUNT, AUTOMATED 225 10^3/uL (150-450); RED BLOOD COUNT 5.12 10^6/uL (4.00-5.40); WHITE BLOOD COUNT 6.9 10^3/uL (4.0-10.0)
[2022-09-04 14:47] LABS: THYROID STIMULATING HORMONE 0.948 uIU/ML (0.55-4.78)
[2022-09-04 14:59] LABS: HEPATITIS B SURFACE ANTIGEN NEGATIVE (NEGATIVE)
[2022-09-04 15:11] LABS: HIV 1&2 SCREEN CENTAUR NEGATIVE (NEGATIVE)
[2022-09-04 15:20] LABS: HEPATITIS C VIRUS ABY INDEX 0.1 INDEX (<0.8)
[2022-09-04 15:47] LABS: GC DNA AMPLIFICATION NEGATIVE (NEGATIVE)
[2022-09-04 16:40] LABS: GC DNA AMPLIFICATION NEGATIVE (NEGATIVE)
== END ==
LOC: M PLALAB 10:51
PROVIDERS: ATTEND Obstetrics & Gynecology
DX: Z12.4 Encounter for screening for malignant neoplasm of cervix (principal); Z11.3 Encounter for screening for infections with a predominantly sexual mode of transmission; N93.9 Abnormal uterine and vaginal bleeding, unspecified; R87.615 Unsatisfactory cytologic smear of cervix

== ENCOUNTER → 2023-02-09 | Outpatient (CLI) | payer OTHER | LOC: M WHC 14:03 | PROVIDERS: ATTEND Obstetrics & Gynecology | DX: Z12.31 Encounter for screening mammogram for malignant neoplasm of breast (principal); N93.9 Abnormal uterine and vaginal bleeding, unspecified; N88.8 Other specified noninflammatory disorders of cervix uteri ==

== ENCOUNTER → 2023-06-28 | Outpatient (REF) | payer OTHER ==
[2023-06-28 19:55] LABS: CHLAMYDIA DNA AMPLIFICATION NEGATIVE (NEGATIVE); GC DNA AMPLIFICATION NEGATIVE (NEGATIVE)
== END ==
LOC: M SFHCWAGY 17:47
PROVIDERS: ATTEND Obstetrics & Gynecology
DX: Z12.4 Encounter for screening for malignant neoplasm of cervix (principal); Z11.3 Encounter for screening for infections with a predominantly sexual mode of transmission; Z77.9 Other contact with and (suspected) exposures hazardous to health; R87.615 Unsatisfactory cytologic smear of cervix

== ENCOUNTER → 2023-10-06 | Outpatient (REF) | payer OTHER | LOC: M SFHCWAGY 17:55 | PROVIDERS: ATTEND Obstetrics & Gynecology | DX: R87.615 Unsatisfactory cytologic smear of cervix (principal); N93.9 Abnormal uterine and vaginal bleeding, unspecified ==

== ENCOUNTER → 2025-07-12 | Outpatient (REF) | payer OTHER ==
[2025-07-14 14:22] LABS: HPV APTIMA Detected (Not Detected)
== END ==
LOC: M SFHCWAGY 15:12
PROVIDERS: ATTEND Obstetrics & Gynecology
DX: Z12.4 Encounter for screening for malignant neoplasm of cervix (principal); R87.615 Unsatisfactory cytologic smear of cervix